=== PATIENT | female | born 1985 | race Caucasian/White ===

== ENCOUNTER 2017-06-12 20:23 | Emergency (ER) | payer OTHER ==
[~2017-06-12] VITALS: Ht 162.5 cm; Wt 103.4 kg
[~2017-06-12 20:23] MED LIST: ALEVE220 MG PO; AMOXICILLIN500 MG PO; ATIVAN1 MG PO; AUGMENTIN 500500 MG PO; AUGMENTIN 875875 MG PO; CLINDAMYCIN150 MG PO; COMPAZINE5 M1 PO; COREG6.25 MG PO; DELTASONE20 M1 PO; FIORICET 50-301 EACH PO; GLUCOPHAGE500 MG PO; HUMALOG100 U/ML SC; HUMALOG100 UNIT/1 SQ; IBU800 M1 PO; INSULIN SYRING1 EAC1 MC; LANTUS100 U/ML SC; LEVOFLOXACIN500 MG PO; LOPRESSOR25 MG PO; MOTRIN800 MG PO; NKHM PO; NORCO 325 MG-51 TAB PO; PHENERGAN25 M1 PO; Phenergan25 MG PO; TEST STRIPS1 EACH MC; Tobradex 0.3-0.15 ML OT; VICODIN 5/500 505 MG PO; VICODIN 500 MG-1 TAB PO; ZESTRIL,PRINIVI20 MG PO; [UNRECOGNIZED DRUG - OTHER] SC
[2017-06-12] MEDS ORDERED: LIPITOR10 MG PO (20:34)
[2017-06-12] MEDS ORDERED: COZAAR50 M1 PO (20:34)
[2017-06-12] MEDS ORDERED: SEPTDS PO (20:40)
== END 2017-06-12 20:48 | disposition home or self-care (01) ==
LOC: ED 20:23
DX: N61.1 Abscess of the breast and nipple (principal); E11.65 Type 2 diabetes mellitus with hyperglycemia; F17.200 Nicotine dependence, unspecified, uncomplicated; Z88.8 Allergy status to other drugs, medicaments and biological substances; Z79.899 Other long term (current) drug therapy; Z68.34 Body mass index [BMI] 34.0-34.9, adult; Z90.89 Acquired absence of other organs

== ENCOUNTER 2018-07-01 19:07 | Emergency (ER) | payer OTHER ==
[~2018-07-01] VITALS: Ht 162.5 cm; Wt 81.6 kg
[~2018-07-01 19:07] MED LIST changes: +COZAAR50 M1 PO; +LIPITOR10 MG PO; +SEPTDS PO
[2018-07-01] MEDS ORDERED: PREDNISONE20 M1 PO (20:28)
[2018-07-01] MEDS ORDERED: TESSALON PERLE100 M1 PO (20:28)
[2018-07-01] MEDS ORDERED: PROVENTIL HFA6.7 GM INH (20:28)
== END 2018-07-01 20:31 | disposition home or self-care (01) ==
LOC: ED 19:07
DX: J40 Bronchitis, not specified as acute or chronic (principal); H92.03 Otalgia, bilateral; F17.200 Nicotine dependence, unspecified, uncomplicated; Z91.048 Other nonmedicinal substance allergy status; Z88.6 Allergy status to analgesic agent; Z79.899 Other long term (current) drug therapy

== ENCOUNTER → 2021-01-19 | Outpatient (CLI) | payer OTHER ==
[~2021-01-19] MED LIST changes: +PREDNISONE20 M1 PO; +PROVENTIL HFA6.7 GM INH; +TESSALON PERLE100 M1 PO
== END | disposition home or self-care (01) ==
LOC: COVID19 18:31
PROVIDERS: ATTEND Internal Medicine
DX: Z11.52 Encounter for screening for COVID-19 (principal)

== ENCOUNTER → 2021-03-02 | Outpatient (CLI) | payer OTHER | END | disposition home or self-care (01) | LOC: COVID19 16:57 | PROVIDERS: ATTEND Internal Medicine | DX: U07.1 COVID-19 (principal) ==

== ENCOUNTER 2022-12-03 19:50 | Emergency (ER) | payer SELFPAY ==
[~2022-12-03] VITALS: Ht 162.5 cm; Wt 81.6 kg
[2022-12-03 20:28] LABS: BASO % 0.2 % (0.0-1.0); EOS % 0.3 % (1.0-4.0); LYMPH # 1.2 10*3/uL (1.3-4.4); LYMPH % 10.4 % (27.0-41.0); MEAN CELL VOLUME 86.9 fl (81.0-99.0); MEAN CORPUSCULAR HGB 29.4 pg (27.0-31.0); MEAN CORPUSCULAR HGB CONC 33.8 g/dl (33.0-37.0); MEAN PLATELET VOLUME 10.3 fl (9.6-12.3); MONO # 0.5 10*3/uL (0.1-1.0); MONO % 4.2 % (3.0-9.0); NEUT # 10.1 10*3/uL (2.3-7.9); NEUT % 84.6 % (47.0-73.0); PLATELET COUNT AUTOMATED 314 10*3/uL (130-400); RED BLOOD COUNT 4.49 10*6/uL (4.10-5.10); RED CELL DISTRI WIDTH 12.8 % (0-14.5); WHITE BLOOD COUNT 11.9 10*3/uL (4.8-10.8)
[2022-12-03 20:50] LABS: ACT PARTIAL THROMBO TIME 25.5 SECONDS (20.0-32.1)
[2022-12-03 21:01] LABS: ALKALINE PHOSPHATASE 53 U/L (46-116); BUN 9 mg/dl (9-23); CHLORIDE 103 mmol/L (98-107); LIPASE 35 U/L (12-53); POTASSIUM 4.1 mmol/L (3.4-5.1)
[2022-12-03 21:07] LABS: SGPT/ALT < 7 U/L (10-49)
[2022-12-03 22:12] LABS: BILIRUBIN Negative (Negative); BLOOD Negative (Negative); CLARITY Clear (Clear); COLOR Yellow (Yellow); GLUCOSE Trace (Negative); KETONE Negative (Negative); LEUKO ESTERASE Negative (Negative); NITRITE Negative (Negative); SPECIFIC GRAVITY >= 1.030 (1.001-1.030); UROBILINOGEN 0.2 E.U./dl (0.0-1.0)
[2022-12-03] MEDS ORDERED: TRAMADOL HCL50 MG PO (22:38)
[2022-12-03 22:45] LABS: EPITHELIAL CELLS 0-2; RBC 0-2 rbc/hpf (0-2); WBC 0-2 wbc/hpf (0-5)
== END 2022-12-03 23:09 | disposition home or self-care (01) ==
LOC: ED 19:50
PROVIDERS: Internal Medicine
DX: N13.30 Unspecified hydronephrosis (principal); N13.4 Hydroureter; D23.9 Other benign neoplasm of skin, unspecified; G43.909 Migraine, unspecified, not intractable, without status migrainosus; Z88.8 Allergy status to other drugs, medicaments and biological substances; Z98.890 Other specified postprocedural states; F17.200 Nicotine dependence, unspecified, uncomplicated